=== PATIENT | female | born 1960 | race Caucasian/White ===

== ENCOUNTER → 2016-06-14 17:13 | Outpatient (CLI) | payer BC | END | disposition home or self-care (01) | LOC: D.MAMMO 05-25 15:30 | DX: Z12.31 Encounter for screening mammogram for malignant neoplasm of breast (principal) ==

== ENCOUNTER → 2018-03-06 18:39 | Outpatient (CLI) | payer BC | END | disposition home or self-care (01) | LOC: D.MAMMO 11:15 | DX: Z12.31 Encounter for screening mammogram for malignant neoplasm of breast (principal) ==

== ENCOUNTER → 2019-02-26 23:46 | Outpatient (CLI) | payer BC | END | disposition home or self-care (01) | LOC: D.MAMMO 16:15 | PROVIDERS: ATTEND Nurse Practitioner Family | DX: Z12.31 Encounter for screening mammogram for malignant neoplasm of breast (principal) ==

== ENCOUNTER → 2019-03-11 15:21 | Outpatient (CLI) | payer BC ==
[2019-03-11 18:49] LABS: BASOPHILS 1.6 % (0-2); EOSINOPHILS 1.6 % (0-7); HEMATOCRIT 44.3 % (36.0-48.0); HEMOGLOBIN 14.2 g/dL (12-16); IMMATURE GRANULOCYTES 0.2 % (0-5); LYMPHOCYTES 25.4 % (15-50); MCH 30.6 pg (26.0-34.0); MCHC 32.1 g/dL (31.0-37.0); MCV 95.5 fL (80.0-100.0); MEAN PLATELET VOLUME 9.4 fL (7.4-10.4); MONOCYTES 10.1 % (2-11); NEUTROPHILS 61.1 % (40-80); PLATELET COUNT 304 10x3/uL (130-400); RBC 4.64 10x6/uL (4.00-5.40); RDW 13.6 % (11.5-14.5); WBC 5.6 10x3/uL (4.8-10.8)
[2019-03-14 08:10] LABS: IMMUNOGLOBULIN A 129 mg/dL (87-352); IMMUNOGLOBULIN G 1057 mg/dL (700-1600); IMMUNOGLOBULIN M 70 mg/dL (26-217)
== END | disposition home or self-care (01) ==
LOC: D.LABREF 15:21
PROVIDERS: ATTEND Internal Medicine Pulmonary Disease
DX: J45.909 Unspecified asthma, uncomplicated (principal)

== ENCOUNTER → 2019-05-08 09:41 | Outpatient (CLI) | payer BC ==
[2019-05-08 11:39] LABS: EOSINOPHILS 2.5 % (0-7); HEMATOCRIT 44.1 % (36.0-48.0); HEMOGLOBIN 14.6 g/dL (12-16); LYMPHOCYTES 37.2 % (15-50); MCH 31.5 pg (26.0-34.0); MCHC 33.1 g/dL (31.0-37.0); MCV 95.2 fL (80.0-100.0); MEAN PLATELET VOLUME 8.7 fL (7.4-10.4); MONOCYTES 8.7 % (2-11); NEUTROPHILS 50.6 % (40-80); RBC 4.63 10x6/uL (4.00-5.40); RDW 13.3 % (11.5-14.5); WBC 4.8 10x3/uL (4.8-10.8)
[2019-05-08 11:43] LABS: PLATELET COUNT 213 10x3/uL (130-400)
[2019-05-09 10:10] LABS: IMMUNOGLOBULIN A 121 mg/dL (87-352); IMMUNOGLOBULIN G 1041 mg/dL (700-1600); IMMUNOGLOBULIN M 73 mg/dL (26-217)
[2019-05-12 05:07] LABS: IMMUNOGLOBULIN E 6 IU/mL (6-495)
== END | disposition home or self-care (01) ==
LOC: D.RT 09:41
PROVIDERS: ATTEND Internal Medicine Pulmonary Disease
DX: J45.909 Unspecified asthma, uncomplicated (principal); J98.11 Atelectasis

== ENCOUNTER → 2020-08-20 10:15 | Outpatient (CLI) | payer BC | END | disposition home or self-care (01) | LOC: D.LAB 10:15 | PROVIDERS: ATTEND Internal Medicine Pulmonary Disease | DX: Z11.52 Encounter for screening for COVID-19 (principal) ==

== ENCOUNTER → 2020-08-23 07:52 | Outpatient (CLI) | payer BC | END | disposition home or self-care (01) | LOC: D.RT 07:52 | PROVIDERS: ATTEND Internal Medicine Pulmonary Disease | DX: J45.909 Unspecified asthma, uncomplicated (principal) ==